=== PATIENT | male | born 1960 | race Caucasian/White ===

== ENCOUNTER → 2017-06-07 13:25 | Outpatient (CLI) | payer OTHER, SELFPAY ==
--- NOTE | 2017-06-07 13:33 | RAD_ITS ---
STUDY: X-RAY - RIGHT KNEE REASON FOR EXAM: Chronic pain. TECHNIQUE: 4 view(s) of the knee. COMPARISON: None. FINDINGS: Normal visualized distal femur. Normal visualized proximal tibia and fibula. Normal proximal tibiofibular articulation. There is mild joint space narrowing of the medial femorotibial compartment. Normal lateral femorotibial compartment. Normal patellofemoral articulation. There is a small enthesophyte at the femoral origin of the medial collateral ligament. RAD/Knee 4 or More Views IMPRESSION: Mild arthrosis of the medial femorotibial compartment. Small enthesophyte at the femoral origin of the medial collateral ligament. Electronically Signed: Federico Irby MD at 14:10 EST Tel , Service support ,
== END ==
PROVIDERS: Visit Provider Orthopaedic Surgery
DX: M25.561 Pain in right knee (principal)
CPT/HCPCS: 73564

== ENCOUNTER → 2017-08-15 14:00 | Outpatient (CLI) | payer OTHER, SELFPAY ==
--- NOTE | 2017-08-15 14:04 | RAD_ITS ---
STUDY: X-RAY - LUMBAR SPINE REASON FOR EXAM: Male, 56 years old. Pain TECHNIQUE: 4 view(s) of the lumbar spine were obtained. COMPARISON: None FINDINGS: There is no evidence of fracture or dislocation in the lumbar spine. The vertebral body heights are well-maintained. There are degenerative changes at L5/S1 with disc space narrowing. RAD/Lumbar Spine 2 or 3 Views IMPRESSION: No fracture or dislocation in the lumbar spine. Degenerative changes L5/S1 with disc space narrowing. Electronically Signed: Guy Peraza, at 21:34 EDT Tel , Service support ,
== END ==
PROVIDERS: Family Provider Family Medicine; PCP Family Medicine; Visit Provider Anesthesiology Pain Medicine
DX: M54.9 Dorsalgia, unspecified (principal)
CPT/HCPCS: 72100

== ENCOUNTER → 2017-10-10 16:45 | Outpatient (CLI) | payer OTHER, SELFPAY ==
[2017-10-10 19:28] LABS: Amphetamine Urine VISTA NEGATIVE (<1000 ng/mL); Barbiturate Urine VISTA NEGATIVE (< 200 ng/mL); Benzodiazepine Urine VISTA NEGATIVE (< 200 ng/mL); Cocaine Urine VISTA NEGATIVE (< 300 ng/mL); Ecstacy Urine VISTA NEGATIVE (< 500 ng/mL); Methadone Urine VISTA NEGATIVE (< 300 ng/mL); PCP Urine VISTA NEGATIVE (< 25 ng/mL); THC Urine VISTA NEGATIVE (< 50 ng/mL); Vista UDS pH Range 5
== END ==
PROVIDERS: Family Provider Family Medicine; PCP Family Medicine; Visit Provider Anesthesiology Pain Medicine
DX: F11.20 Opioid dependence, uncomplicated (principal)
CPT/HCPCS: 80307

== ENCOUNTER 2017-10-19 08:06 | Day surgery (SDC) | payer OTHER, SELFPAY ==
[2017-10-19 08:34] VITALS: BP 133/73; PULSE 72; RESP 16; TEMP 36.4; O2SAT 100; BMI 32.0
[2017-10-19 09:01] LABS: Bedside Glucose 98 mg/dL (70-110)
[2017-10-19] MEDS: Bupiv/Epi 0.5% Mpf 30 ML Vial (12:05)
[2017-10-19] MEDS: Mupirocin Ointment 22gm Tube 1 APPLIC (12:07)
--- NOTE | 2017-10-19 12:09 | DCINST_ITS ---
Discharge Diet: No Restrictions - REMOVE DRESSING IN 4 DAYS AND apply Band-Aids to incision sites, may walk as tolerated on the affected leg Call with increased pain numbness tingling further issues arise, follow-up in 2 weeks for suture removal and initiation of physical therapy, his medications as prescribed , Discharge Activity: May Not Drive May shower in (days): 1 Ice area for (Minutes): 20 - Every hour while awake. Weight Bearing Status: Weight bearing as tolerated Keep extremity elevated above heart level: Operative Extremity Call your doctor if your incision/area has: Continuous Slow Oozing, Sudden Increased Bleeding, Increased Pain/ Swelling, Increased Redness, Foul Smelling Discharge Call your doctor if you observe: Fever of 101 or Higher, Coldness, Increased Pain, Numbness or Tingling, Change in Color, Calf discomfort Allergies/Adverse Reactions: Allergies cefaclor [From Ceclor] Allergy (Mild, Verified 10/12/17 11:03) chest tightness penicillin V Allergy (Mild, Verified 10/12/17 11:03) flushed, seeing worms cortisone Adverse Reaction (Verified 10/12/17 11:05) Other HIGH BLOOD SUGAR, TOXIC DIABETES SHOCK FRO CORTISINE INJECTION Medications to take at Discharge levothyroxine 100 mcg capsule 212 mcg PO DAILY 06/07/17 glipizide 5 mg tablet 5 mg PO QDAY 09/20/17 Meloxicam [Mobic] 7.5 mg PO DAILY 10/12/17 traMADol [Ultram (G)] 50 mg PO BID 10/12/17 Primary Care Physician: Easton Otto [Primary Care Provider] - Test Results: Test results from this visit will be discussed in further detail at your follow- up appointment, if applicable. Please Follow Up With: Yandy Whitt, DO - [phone]
--- NOTE | 2017-10-19 12:12 | PCM.OPRPT ---
Report of Operation Date of Procedure: 10/19/17 Pre-Operative Diagnosis: left knee med and lat men tears/pseudogout Post-Operative Diagnosis: same Surgery/Procedure Performed:: salk, plm, pmm Type of Anesthesia:: General Anesthesiologist: Madhav Olguin Drains: tt-16 min Estimated Blood Loss (mL): min Fluids Replaced: 1000ml lr Description of Procedure: Preoperative note Patient is a 57-year-old male with known right knee pain. Failed conservative treatment continued pain MRI confirms medial lateral meniscus tear patient elected proceed with right knee arthroscopy repair is indicated. Risks benefits and alternatives surgery discussed with patient. Risks including but not limited to blood loss, blood clot, infection, neurovascular injury, failure procedure, loss of life and loss of limb. Patient is aware would like to proceed with right knee arthroscopy repair is indicated. Operative note Patient seen and examined preoperative holding area. Right knee was marked. Patient brought to the operating placed supine on the operating table. Sign, anesthesia, antibiotics were administered. Right leg was prepped and draped in usual sterile fashion with tourniquet around his upper thigh. Bony prominences well-padded SCDs placed on his contralateral limb. Timeout was performed. The marked out her incisions for anterior lateral and anterior medial portal placement leg was elevated exsanguinated tourniquet tourniquet was raised her pressure of 275 torr. We created her anterior lateral portal under direct to initially the standard the standard diagnostic arthroscopy. The patellofemoral joint was intact the medial meniscus was obviously torn created an anterior medial portal under direct visualization. We probed the unstable meniscus. He had calcium deposits throughout his medial and lateral meniscus as well as some deposits on his medial femoral condyle as well as his ACL. We resected back the unstable meniscus with accommodation of a basket and shaver. We reinserted the probe to make sure that we had good remnant meniscus remaining which we did have. Then moved to the lateral meniscus there is a posterior horn lateral meniscus tear as well and this was debrided gently back with a shaver and a basket. We then reinserted a probe to ensure that we had good remnant lateral meniscus remaining which we did have. The knee was irrigated with copious amounts of sterile saline. Tourniquet was deflated for total working time of 60 minutes. Sterile dressings were applied after the portals were closed with interrupted 4-0 nylon sutures. Patient tolerated procedure well there are no comp occasions transferred to recovery room recovery room in stable condition. Next Postoperative note Weight-bear as tolerated right leg Hospital pharmacy has prescriptions as Follow-up in 2 weeks Call with concerns as This note was generated with [employer] dictation software. It may contain incorrect words, spelling, and punctuation that were not noted in checking the note before signing.
[2017-10-19 12:18] VITALS: BP 127/81; BP 133/73; PULSE 88; RESP 18; TEMP 36.7; O2SAT 95
[2017-10-19 12:30] VITALS: BP 113/80; BP 133/73; PULSE 84; RESP 18; O2SAT 95
[2017-10-19 12:45] VITALS: BP 123/91; BP 133/73; PULSE 78; RESP 16; O2SAT 93
[2017-10-19 12:51] VITALS: BP 116/74; BP 133/73; PULSE 83; RESP 16; TEMP 36.5; O2SAT 94
[2017-10-19 13:44] VITALS: BP 133/73; BP 146/92; PULSE 82; RESP 18; TEMP 36.9; O2SAT 95
== END 2017-10-19 13:48 | disposition home or self-care (01) ==
LOC: SDC 08:06 → AC 08:08
PROVIDERS: Family Provider Family Medicine; PCP Family Medicine; Visit Provider Orthopaedic Surgery
PROC: (CPT 29870; principal; 2017-10-19 09:50)
DX: S83.241A Other tear of medial meniscus, current injury, right knee, initial encounter (principal); S83.281A Other tear of lateral meniscus, current injury, right knee, initial encounter; M11.262 Other chondrocalcinosis, left knee; X58.XXXA Exposure to other specified factors, initial encounter; Y93.9 Activity, unspecified; Y92.9 Unspecified place or not applicable; Y99.9 Unspecified external cause status; E11.9 Type 2 diabetes mellitus without complications; E78.00 Pure hypercholesterolemia, unspecified; E03.9 Hypothyroidism, unspecified; Z79.84 Long term (current) use of oral hypoglycemic drugs; Z79.899 Other long term (current) drug therapy; Z86.010 Personal history of colon polyps; Z87.19 Personal history of other diseases of the digestive system; Z87.891 Personal history of nicotine dependence
CPT/HCPCS: 29880; 82962; J7120; J2405

== ENCOUNTER → 2018-06-26 09:13 | Outpatient (CLI) | payer OTHER, SELFPAY ==
[2018-06-26 10:10] LABS: Amphetamine Urine VISTA NEGATIVE (<1000 ng/mL); Barbiturate Urine VISTA NEGATIVE (< 200 ng/mL); Benzodiazepine Urine VISTA NEGATIVE (< 200 ng/mL); Cocaine Urine VISTA NEGATIVE (< 300 ng/mL); Ecstacy Urine VISTA NEGATIVE (< 500 ng/mL); Methadone Urine VISTA NEGATIVE (< 300 ng/mL); PCP Urine VISTA NEGATIVE (< 25 ng/mL); THC Urine VISTA NEGATIVE (< 50 ng/mL); Vista UDS pH Range 5
== END ==
PROVIDERS: Family Provider Family Medicine; PCP Family Medicine; Referring Provider Anesthesiology Pain Medicine; Visit Provider Anesthesiology Pain Medicine
DX: F11.20 Opioid dependence, uncomplicated (principal)
CPT/HCPCS: 80307

== ENCOUNTER → 2020-06-10 10:45 | Outpatient (CLI) | payer OTHER, SELFPAY ==
[2020-01-29 10:40] VITALS: BMI 31.2
[2020-06-10 12:08] LABS: Amphetamine Urine VISTA NEGATIVE (<1000 ng/mL); Barbiturate Urine VISTA NEGATIVE (< 200 ng/mL); Benzodiazepine Urine VISTA NEGATIVE (< 200 ng/mL); Cocaine Urine VISTA NEGATIVE (< 300 ng/mL); Ecstacy Urine VISTA NEGATIVE (< 500 ng/mL); Methadone Urine VISTA NEGATIVE (< 300 ng/mL); PCP Urine VISTA NEGATIVE (< 25 ng/mL); THC Urine VISTA NEGATIVE (< 50 ng/mL); Vista UDS pH Range 5
== END ==
PROVIDERS: PCP Family Medicine; Referring Provider Anesthesiology Pain Medicine; Visit Provider Anesthesiology Pain Medicine
DX: F11.20 Opioid dependence, uncomplicated (principal)
CPT/HCPCS: 80307

== ENCOUNTER → 2020-08-25 07:51 | Outpatient (CLI) | payer OTHER, SELFPAY ==
[2020-01-29 10:40] VITALS: BMI 31.2
--- NOTE | 2020-08-25 07:53 | US_ITS ---
STUDY: RENAL ULTRASOUND - COMPLETE REASON FOR EXAM: Male, 59 years old. Right flank pain. TECHNIQUE: Ultrasound evaluation of the kidneys was performed with real-time and static stockton-scale imaging. COMPARISON: None. FINDINGS: RIGHT KIDNEY: Normal location of the right kidney, which is normal in size. The right kidney measures 10.6 cm x 5.4 cm x 6.1 cm. There is a normal cortex of the right kidney. The renal cortex measures 1.9 cm. There is no right renal mass or cyst. There are no right renal calculi. There is no right hydronephrosis. DISTAL RIGHT URETER: There is non-visualization of the distal right ureter. There is no demonstrated right ureterovesical junction calculus. There is a visualized right ureteral jet. LEFT KIDNEY: Normal location of the left kidney, which is normal in size. The left kidney measures 11.5 cm x 5.6 cm x 6 cm. There is a normal cortex of the left kidney. The renal cortex measures 2.0 cm. There is no left renal mass or cyst. There are no left renal calculi. There is no left hydronephrosis. DISTAL LEFT URETER: There is non-visualization of the distal left ureter. There is no demonstrated left ureterovesical junction calculus. There is a visualized left ureteral jet. BLADDER: The distended urinary bladder has a volume of 52 ml. There is a normal wall thickness of the distended urinary bladder. There is no demonstrated mass within the urinary bladder. There are no demonstrated bladder calculi. US/Kidney and Bladder IMPRESSION: Normal ultrasound of the kidneys and urinary bladder. Electronically Signed: Francisco Schaefer MD at 13:38 EDT , Service support ,
== END ==
PROVIDERS: PCP Family Medicine; Referring Provider Family Medicine; Visit Provider Family Medicine
DX: R10.9 Unspecified abdominal pain (principal)
CPT/HCPCS: 76770

== ENCOUNTER → 2022-04-08 | Outpatient (CLI) | payer OTHER, SELFPAY ==
[2022-04-08 13:05] LABS: Amphetamine Urine VISTA NEGATIVE (<1000 ng/mL); Barbiturate Urine VISTA NEGATIVE (< 200 ng/mL); Benzodiazepine Urine VISTA NEGATIVE (< 200 ng/mL); Cocaine Urine VISTA NEGATIVE (< 300 ng/mL); Ecstacy Urine VISTA NEGATIVE (< 500 ng/mL); Methadone Urine VISTA NEGATIVE (< 300 ng/mL); PCP Urine VISTA NEGATIVE (< 25 ng/mL); THC Urine VISTA NEGATIVE (< 50 ng/mL); Vista UDS pH Range 5
== END | disposition home or self-care (01) ==
PROVIDERS: PCP Family Medicine; Referring Provider Anesthesiology Pain Medicine; Visit Provider Anesthesiology Pain Medicine
DX: F11.20 Opioid dependence, uncomplicated (principal)
CPT/HCPCS: 80307

== ENCOUNTER → 2022-09-20 | Outpatient (CLI) | payer OTHER, SELFPAY ==
--- NOTE | 2022-09-20 10:49 | RAD_ITS ---
STUDY: X-RAY - RIGHT KNEE REASON FOR EXAM: Male, 62 years old. Pain and stiffness TECHNIQUE: 2 view(s) of the knee. COMPARISON: 06/07/2017 FINDINGS: Normal visualized distal femur. Normal visualized proximal tibia and fibula. Normal proximal tibiofibular articulation. There is mild degenerative arthrosis of the medial femorotibial compartment. Normal lateral femorotibial compartment. There is mild degenerative arthrosis of the patellofemoral articulation. The soft tissue structures are unremarkable. RAD/Knee 1 or 2 Views IMPRESSION: Mild arthrosis, no demonstrated fracture or suspicious osseous lesion Electronically Signed: Isidro Ann MD at 12:58 EDT ,
== END | disposition home or self-care (01) ==
LOC: LAB 10:42
PROVIDERS: PCP Family Medicine; Referring Provider Anesthesiology Pain Medicine; Visit Provider Anesthesiology Pain Medicine
DX: M25.562 Pain in left knee (principal)
CPT/HCPCS: 73560

== ENCOUNTER → 2024-01-25 | Outpatient (CLI) | payer MEDICARE, SELFPAY ==
--- NOTE | 2024-01-25 11:00 | RAD_ITS ---
EXAM: XR LUMBOSACRAL SPINE, 4 OR 5 VIEWS CLINICAL INDICATION: M54.817/[id number] TECHNIQUE: Frontal, lateral and bilateral oblique views of the lumbar spine. COMPARISON: No relevant prior studies available. FINDINGS: VERTEBRAE: Unremarkable. Preserved vertebral body height. No fracture. No spondylolisthesis. Preservation of the normal lumbar lordosis. No significant facet arthropathy. DISC SPACES: There is loss of disc space height at L5-S1. GASTROINTESTINAL TRACT: Unremarkable as visualized. Included bowel gas pattern is non-obstructive. RAD/L/S Spine Min 4 Views IMPRESSION: No acute osseous abnormalities of the lumbar spine. There are degenerative changes with disc space narrowing at L5-S1. Electronically Signed: Emiliano Liu MD at 23:57 EDT ,
[2024-01-25 11:52] LABS: Amphetamine Urine VISTA NEGATIVE (<1000 ng/mL); Barbiturate Urine VISTA NEGATIVE (< 200 ng/mL); Benzodiazepine Urine VISTA NEGATIVE (< 200 ng/mL); Cocaine Urine VISTA NEGATIVE (< 300 ng/mL); Ecstacy Urine VISTA NEGATIVE (< 500 ng/mL); Methadone Urine VISTA NEGATIVE (< 300 ng/mL); PCP Urine VISTA NEGATIVE (< 25 ng/mL); THC Urine VISTA NEGATIVE (< 50 ng/mL); Vista UDS pH Range 7
== END | disposition home or self-care (01) ==
PROVIDERS: PCP Family Medicine; Referring Provider Anesthesiology Pain Medicine; Visit Provider Anesthesiology Pain Medicine
DX: F11.20 Opioid dependence, uncomplicated (principal); M47.817 Spondylosis without myelopathy or radiculopathy, lumbosacral region
CPT/HCPCS: 72110; 80307